=== PATIENT | male | born 1985 | race Caucasian/White ===

== ENCOUNTER 2025-08-22 14:25 | Emergency (ER) | payer OTHER ==
[~2025-08-22] VITALS: Ht 193 cm; Wt 88.0 kg
[2025-08-22 14:43] VITALS: TEMP 98.4
[2025-08-22] MEDS: IBUPROFEN 600 MG TABLET PO ONE (15:02)
[2025-08-22 17:52] VITALS: BP 132/84; PULSE 74; RESP 18; O2SAT 99
== END 2025-08-22 17:58 | disposition home or self-care (01) ==
LOC: EMS 14:30
DX: S62.307A Unspecified fracture of fifth metacarpal bone, left hand, initial encounter for closed fracture (principal); W21.05XA Struck by basketball, initial encounter; Y93.67 Activity, basketball; Y92.89 Other specified places as the place of occurrence of the external cause; Y99.8 Other external cause status
CPT/HCPCS: 99284; 73130-TC; 73610-TC; 73630-TC; Z7502; Z7610